=== PATIENT | male | born 1975 | race African-American/Black ===

== ENCOUNTER 2018-07-04 19:28 | Emergency (ER) | payer BC ==
[~2018-07-04] VITALS: Ht 208.3 cm; Wt 88.1 kg
[2018-07-04 20:20] VITALS: Ht 208.3 cm; Wt 88.1 kg
[2018-07-04 22:22] VITALS: BP 105/74
== END 2018-07-04 22:22 | disposition home or self-care (01) ==
LOC: ED 19:28
DX: M54.5 Low back pain (principal); V48.6XXA Car passenger injured in noncollision transport accident in traffic accident, initial encounter; Y93.89 Activity, other specified; Y92.488 Other paved roadways as the place of occurrence of the external cause; Y99.8 Other external cause status

== ENCOUNTER 2020-03-26 01:04 | Emergency (ER) | payer MEDICAID ==
[~2020-03-26] VITALS: Ht 175.3 cm; Wt 74.8 kg
[2020-03-26 01:10] VITALS: BP 140/71; Ht 175.3 cm; Wt 74.8 kg
== END 2020-03-26 03:33 | disposition other institution (70) ==
LOC: ED 01:04
DX: S02.2XXA Fracture of nasal bones, initial encounter for closed fracture (principal); S52.121A Displaced fracture of head of right radius, initial encounter for closed fracture; I10 Essential (primary) hypertension; Y04.2XXA Assault by strike against or bumped into by another person, initial encounter; Y93.89 Activity, other specified; Y92.481 Parking lot as the place of occurrence of the external cause; Y99.8 Other external cause status
CPT/HCPCS: 90715

== ENCOUNTER 2020-03-26 01:04 | Emergency (ER) | payer OTHER | END 2020-03-26 03:33 | disposition other institution (70) | LOC: ED 01:04 | DX: Z02.89 Encounter for other administrative examinations (principal) ==